=== PATIENT | female | born 1950 | race Caucasian/White ===

== ENCOUNTER 2017-06-18 22:58 | Emergency (ER) | payer MEDICARE, OTHER ==
[2017-06-18 23:12] VITALS: BP 104/55; PULSE 89; RESP 20; TEMP 98.2
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
--- NOTE | 2017-06-18 23:57 | XR ---
EXAM: XR Left Ankle Complete, 3 or More Views CLINICAL HISTORY: Reason: tripped over dog, left pain, numbness TECHNIQUE: Frontal, lateral and oblique views of the left ankle. COMPARISON: None FINDINGS: Bones/joints: Mildly displaced oblique, comminuted fracture of the distal left fibula (Mays type B). Fracture fragments are most displaced in the anterior-posterior direction. Small ossifications inferior to the left medial malleolus may represent small fracture fragments. Widening of the medial aspect of the ankle mortise. No significant widening of the tibiofibular syndesmosis. Ankle joint effusion noted. Soft tissues: Soft tissue swelling in the distal left lower leg and about the left ankle. IMPRESSION: Displaced oblique, comminuted fracture of the distal left fibula (Mays type B). Probable small displaced fracture fragments from the left medial malleolus. Widening of the medial aspect of the ankle mortise.
--- NOTE | 2017-06-18 23:59 | XR ---
EXAM: XR Left Foot Complete, 3 or More Views CLINICAL HISTORY: Reason: tripped over dog, left dorsal foot bruising and pain TECHNIQUE: Frontal, lateral and oblique views of the left foot. COMPARISON: None FINDINGS: Bones/joints: No acute fracture or dislocation identified in the left foot. Please see accompanying left ankle radiographs for description of the ankle fracture. Degenerative changes of the first left MTP joint. Osteopenia. Soft tissues: Soft tissue swelling over the dorsal left forefoot. IMPRESSION: Soft tissue swelling over the dorsal left forefoot without acute fracture or dislocation in the left foot. Please see accompanying left ankle radiographs for description of the left ankle fracture.
== END 2017-06-18 23:58 | disposition home or self-care (01) ==
LOC: EC 22:58
DX: S82.62XA Displaced fracture of lateral malleolus of left fibula, initial encounter for closed fracture (principal); S50.11XA Contusion of right forearm, initial encounter; Z98.890 Other specified postprocedural states; W01.0XXA Fall on same level from slipping, tripping and stumbling without subsequent striking against object, initial encounter
CPT/HCPCS: 29515; 99283